=== PATIENT | male | born 1955 | race Caucasian/White ===

== ENCOUNTER 2018-07-05 21:34 | Emergency (ER) | payer MEDICARE ==
[2018-07-05] MEDS: diazePAM 2 MG TAB PO (23:24)
[2018-07-05] MEDS: PROMETHAZINE 25 MG TAB PO (23:24)
== END 2018-07-06 01:21 | disposition home or self-care (01) ==
LOC: M ED 21:34
DX: H81.10 Benign paroxysmal vertigo, unspecified ear (principal); I10 Essential (primary) hypertension; E78.5 Hyperlipidemia, unspecified; M10.9 Gout, unspecified; Z79.899 Other long term (current) drug therapy; Z88.2 Allergy status to sulfonamides; Z88.0 Allergy status to penicillin
CPT/HCPCS: 70450